=== PATIENT | female | born 1945 | race Caucasian/White ===

== ENCOUNTER 2019-07-28 12:43 | Emergency (ER) | payer MEDICARE, BC ==
[~2019-07-28] VITALS: Ht 172.7 cm; Wt 113.6 kg
[2019-07-28 12:53] VITALS: TEMP 97.6
[2019-07-28 15:34] LABS: BASO % 0.5 % (0.0-2.0); EOS # 0.2 (0.0-0.7); EOS % 2.6 % (0-4.0); GRAN # 3.8 (1.4-6.5); GRAN % 66.4 % (42.2-75.2); HEMATOCRIT 38.8 % (37.0-47.0); HEMOGLOBIN 12.3 g/dl (12.5-16.0); LYMPH # 1.5 (1.2-3.4); LYMPH % 25.4 % (20.0-51.0); MEAN CELL VOLUME 87 fl (80.0-100.0); MEAN CORPUSCULAR HEMOGLOBIN 28 pg (27.0-31.0); MEAN CORPUSCULAR HGB CONC 32 g/dl (33.0-37.0); MEAN PLATELET VOLUME 9.9 fl (7.4-10.4); MONO # 0.3 (0.1-0.6); MONO % 4.9 % (1.7-9.3); PLATELET COUNT 170 K/mm3 (130-400); RED BLOOD COUNT 4.46 M/mm3 (4.10-5.30); REDCELL DISTRIBUTION WIDTH-CV 14.1 % (11.5-14.5)
[2019-07-28 15:38] LABS: INR 3.5 (0.8-3.0); PROTHROMBIN TIME 42.7 SECONDS (9.7-12.8)
[2019-07-28] MEDS ORDERED: CEPHALEXIN500 M1 PO (15:39)
[2019-07-28] MEDS ORDERED: PERCOCET 325 MG1 TA2 PO (15:39)
[2019-07-28 15:45] LABS: CALCIUM 9.2 mg/dL (8.4-10.2); CREATININE, serum 0.86 (0.52-1.25); POTASSIUM 4.2 mmol/L (3.4-5.0)
[2019-07-28 16:07] VITALS: BP 136/74; PULSE 86
[2019-07-30] MEDS ORDERED: DOXYCYCLINE 10100 MG PO ×2 (16:00→16:01)
== END 2019-07-28 16:07 | disposition home or self-care (01) ==
LOC: COL.ER 12:43
PROVIDERS: Emergency Medicine
DX: L97.319 Non-pressure chronic ulcer of right ankle with unspecified severity (principal); L02.415 Cutaneous abscess of right lower limb; Z86.718 Personal history of other venous thrombosis and embolism; Z79.01 Long term (current) use of anticoagulants

== ENCOUNTER → 2020-02-05 | Outpatient (CLI) | payer MEDICARE ==
[~2020-02-05] MED LIST: CEPHALEXIN500 M1 PO; DOXYCYCLINE 10100 MG PO; PERCOCET 325 MG1 TA2 PO
== END ==
LOC: COL.RAD 12:21
DX: M51.26 Other intervertebral disc displacement, lumbar region (principal); M48.07 Spinal stenosis, lumbosacral region

== ENCOUNTER 2020-03-18 09:15 | Outpatient (RCR) | payer MEDICARE | END 2020-05-31 | disposition home or self-care (01) | LOC: WSPT | DX: M48.062 Spinal stenosis, lumbar region with neurogenic claudication (principal) ==

== ENCOUNTER → 2020-06-04 | Outpatient (CLI) | payer MEDICARE | LOC: COL.RAD 12:28 | DX: R26.81 Unsteadiness on feet (principal); W19.XXXA Unspecified fall, initial encounter ==

== ENCOUNTER → 2020-08-10 | Outpatient (CLI) | payer MEDICARE | LOC: ZCOL.LAB 16:20 | DX: I83.009 Varicose veins of unspecified lower extremity with ulcer of unspecified site (principal); T14.8XXA Other injury of unspecified body region, initial encounter ==

== ENCOUNTER → 2020-12-07 | Outpatient (CLI) | payer MEDICARE ==
[~2020-12-07] MED LIST changes: +BUSPAR DIVIDOSE15 MG PO; +CELEXA 20MG20 MG/TAB PO; +COUMADIN 2MG2 MG/TAB PO; +D3-5050000 IU PO; +FERROUS SU325 MG/TAB PO; +MIRAPEX0.5 MG PO; +NEURONTIN400 MG/CAP PO; +NORCO 325 MG-51 TAB PO; +PRIL40 PO; +RESTORIL 1515 MG/CAP PO; +SYNTHROID 0.0.025 MG PO; +URSO250 MG PO
== END ==
LOC: COL.RAD 13:19
DX: E04.2 Nontoxic multinodular goiter (principal)

== ENCOUNTER → 2020-12-16 | Outpatient (CLI) | payer MEDICARE | LOC: MC.RAD 13:13 | DX: Z12.31 Encounter for screening mammogram for malignant neoplasm of breast (principal); Z78.0 Asymptomatic menopausal state ==

== ENCOUNTER → 2020-12-30 | Outpatient (CLI) | payer MEDICARE | LOC: COL.RAD 07:59 | DX: K74.3 Primary biliary cirrhosis (principal) ==

== ENCOUNTER 2020-12-31 06:45 | Day surgery (SDC) | payer MEDICARE ==
[~2020-12-31] VITALS: Ht 167.6 cm; Wt 125.9 kg
[~2020-12-31 06:45] MED LIST changes: -BUSPAR DIVIDOSE15 MG PO; -CELEXA 20MG20 MG/TAB PO; -COUMADIN 2MG2 MG/TAB PO; -D3-5050000 IU PO; -FERROUS SU325 MG/TAB PO; -MIRAPEX0.5 MG PO; -NEURONTIN400 MG/CAP PO; -NORCO 325 MG-51 TAB PO; -PRIL40 PO; -RESTORIL 1515 MG/CAP PO; -SYNTHROID 0.0.025 MG PO; -URSO250 MG PO
[2020-12-31 07:18] VITALS: BP 120/74; PULSE 76; TEMP 97.7
[2020-12-31] MEDS ORDERED: COUMADIN 2MG2 MG/TAB PO (07:39)
[2020-12-31] MEDS ORDERED: BUSPAR DIVIDOSE15 MG PO (07:39)
[2020-12-31] MEDS ORDERED: SYNTHROID 0.0.025 MG PO (07:39)
[2020-12-31] MEDS ORDERED: RESTORIL 1515 MG/CAP PO (07:40)
[2020-12-31] MEDS ORDERED: PRIL40 PO (07:40)
[2020-12-31] MEDS ORDERED: URSO250 MG PO (07:41)
[2020-12-31] MEDS ORDERED: NEURONTIN400 MG/CAP PO (07:41)
[2020-12-31] MEDS ORDERED: FERROUS SU325 MG/TAB PO (07:42)
[2020-12-31] MEDS ORDERED: CELEXA 20MG20 MG/TAB PO (07:42)
[2020-12-31] MEDS ORDERED: MIRAPEX0.5 MG PO (07:43)
[2020-12-31] MEDS ORDERED: D3-5050000 IU PO (07:44)
[2020-12-31] MEDS ORDERED: NORCO 325 MG-51 TAB PO (07:45)
[2020-12-31 09:05] VITALS: BP 111/79; PULSE 77; TEMP 97.9
--- NOTE | 2020-12-31 09:05 | NUR ---
PATIENT TO RECOVERY BAY 1 POST PROCEDURE VIA CART ACCOMPANIED BY RN Tyrone NAIDU RN. PATIENT UP TO CHAIR AMBULATORY WITH 2 PERSON ASSIST. MADE COMFORTABLE IN CHAIR, GIVEN WARM BLANKET. VITAL SIGNS TAKEN, WNL. REPORT FROM Tyrone NAIDU RN. PATIENT GIVEN MUFFIN AND COFFEE. DENIES NAUSEA OR PAIN. PATIENT RESTLESS.
--- NOTE | 2020-12-31 09:12 | NUR ---
AT BEDSIDE TO DISCUSS RESULTS OF PROCEDURE WITH PATIENT AND FRIEND OVER PHONE CALL.
[2020-12-31 09:15] VITALS: BP 115/80; PULSE 77
--- NOTE | 2020-12-31 09:24 | NUR ---
IV SITE TO RIGHT HAD DISCONTINUED. NO REDNESS OR SWELLING. PRESSURE APPLIED AND SECURED WITH COTTON BALL AND COBAN.
--- NOTE | 2020-12-31 09:29 | NUR ---
VERBAL DISCUSSION OF DISMISSAL INSTRUCTIONS WITH PATIENT. HARD COPIES OF INSTRUCTIONS GIVEN TO PATIENT. PATIENT GIVES VERBAL UNDERSTANDING AND DENIES QUESTIONS. PATIENT SIGNS IN ACKNOWLEDGMENT OF RECEIPT.
[2020-12-31 09:30] VITALS: BP 122/75; PULSE 76
--- NOTE | 2020-12-31 09:49 | NUR ---
PATIENT CHANGES OUT OF GOWN, ESCORTED VIA WHEELCHAIR OFF UNIT BY CHAPARRO RN TO WAITING SUPER[employer]OR [employer]. ASSISTED TO VEHICLE.
== END 2020-12-31 09:49 | disposition home or self-care (01) ==
LOC: SDCO 06:45
DX: Z12.11 Encounter for screening for malignant neoplasm of colon (principal); D12.3 Benign neoplasm of transverse colon; K29.70 Gastritis, unspecified, without bleeding; K21.9 Gastro-esophageal reflux disease without esophagitis; K64.1 Second degree hemorrhoids; K21.00 Gastro-esophageal reflux disease with esophagitis, without bleeding; K44.9 Diaphragmatic hernia without obstruction or gangrene; K57.30 Diverticulosis of large intestine without perforation or abscess without bleeding; E03.9 Hypothyroidism, unspecified; I82.90 Acute embolism and thrombosis of unspecified vein; G43.909 Migraine, unspecified, not intractable, without status migrainosus; E66.9 Obesity, unspecified; E55.9 Vitamin D deficiency, unspecified; M35.00 Sjogren syndrome, unspecified; F32.9 Major depressive disorder, single episode, unspecified; F41.9 Anxiety disorder, unspecified; Z86.010 Personal history of colon polyps; Z88.8 Allergy status to other drugs, medicaments and biological substances; Z96.653 Presence of artificial knee joint, bilateral; Z79.01 Long term (current) use of anticoagulants; Z88.5 Allergy status to narcotic agent; Z20.822 Contact with and (suspected) exposure to COVID-19; Z86.718 Personal history of other venous thrombosis and embolism; Z79.891 Long term (current) use of opiate analgesic; Z79.899 Other long term (current) drug therapy; Z68.41 Body mass index [BMI] 40.0-44.9, adult
CPT/HCPCS: J2704; J7030

== ENCOUNTER → 2021-04-14 | Outpatient (CLI) | payer MEDICARE ==
[~2021-04-14] MED LIST changes: +BUSPAR DIVIDOSE15 MG PO; +CELEXA 20MG20 MG/TAB PO; +COUMADIN 2MG2 MG/TAB PO; +D3-5050000 IU PO; +FERROUS SU325 MG/TAB PO; +MIRAPEX0.5 MG PO; +NEURONTIN400 MG/CAP PO; +NORCO 325 MG-51 TAB PO; +PRIL40 PO; +RESTORIL 1515 MG/CAP PO; +SYNTHROID 0.0.025 MG PO; +URSO250 MG PO
== END ==
LOC: ZCOL.LAB 17:58
DX: I83.009 Varicose veins of unspecified lower extremity with ulcer of unspecified site (principal)

== ENCOUNTER 2021-06-25 10:17 | Emergency (ER) | payer MEDICARE ==
[~2021-06-25] VITALS: Ht 172.7 cm; Wt 126.4 kg
[2021-06-25 10:18] VITALS: TEMP 97.1
[2021-06-25] MEDS ORDERED: NORCO 325 MG-51 TAB PO (11:01)
[2021-06-25 12:20] VITALS: BP 138/68; PULSE 80
== END 2021-06-25 12:20 | disposition home or self-care (01) ==
LOC: COL.ER 10:17
DX: S92.902A Unspecified fracture of left foot, initial encounter for closed fracture (principal); I87.2 Venous insufficiency (chronic) (peripheral); K21.9 Gastro-esophageal reflux disease without esophagitis; Z98.890 Other specified postprocedural states; Z79.899 Other long term (current) drug therapy; X50.1XXA Overexertion from prolonged static or awkward postures, initial encounter
CPT/HCPCS: L4386

== ENCOUNTER → 2021-11-30 | Outpatient (CLI) | payer MEDICARE | LOC: COL.VAS 12:42 | DX: I82.401 Acute embolism and thrombosis of unspecified deep veins of right lower extremity (principal) ==

== ENCOUNTER → 2022-02-01 | Outpatient (CLI) | payer MEDICARE | LOC: COL.RAD 10:55 | DX: E04.2 Nontoxic multinodular goiter (principal) ==

== ENCOUNTER → 2022-02-13 | Outpatient (CLI) | payer MEDICARE | LOC: MC.RAD 14:50 | DX: Z12.31 Encounter for screening mammogram for malignant neoplasm of breast (principal) ==

== ENCOUNTER → 2022-07-28 | Outpatient (CLI) | payer MEDICARE | LOC: COL.RAD 10:03 | DX: K74.3 Primary biliary cirrhosis (principal); M35.00 Sjogren syndrome, unspecified; N28.1 Cyst of kidney, acquired ==

== ENCOUNTER 2022-12-27 08:00 | Day surgery (SDC) | payer MEDICARE ==
[~2022-12-27] VITALS: Ht 170.2 cm; Wt 126.2 kg
[~2022-12-27 08:00] MED LIST changes: +CALCIUM 600MG+D1 TAB PO; -D3-5050000 IU PO; +URSO FORTE500 MG PO; -URSO250 MG PO
[2022-12-27 08:56] VITALS: BP 167/87; PULSE 83; TEMP 97.2
[2022-12-27 09:31] LABS: PROTHROMBIN TIME 46.3 SECONDS (9.7-12.8)
--- NOTE | 2022-12-27 10:30 | NUR ---
0935-DR BEARD IN ROOM DISCUSSING LAB VALUES WITH PT. DR BEARD IS CANCELING THIS PROCEDURE AT THIS TIME. DR BEARD WILL COME BACK TO DISCUSS A NEW PLAN WITH THE PT. 0940-IV DC'D AT THIS TIME. PT DENIES ANY ASSISTANCE WITH DRESSING. 1017-DR BEARD IN ROOM DISCUSSING NEW PLAN WITH PT. 1030-PT OFF UNIT PER WHEELCHAIR. PT DISCHARGED TO HOME WITH HER FRIEND PER PERSONAL VEHICLE.
== END 2022-12-27 10:30 | disposition home or self-care (01) ==
LOC: SDCO 08:00
PROVIDERS: Internal Medicine Gastroenterology
DX: K21.9 Gastro-esophageal reflux disease without esophagitis (principal); K74.3 Primary biliary cirrhosis; M35.00 Sjogren syndrome, unspecified; Z79.899 Other long term (current) drug therapy; Z79.01 Long term (current) use of anticoagulants; Z53.8 Procedure and treatment not carried out for other reasons
CPT/HCPCS: J2704

== ENCOUNTER 2022-12-29 11:56 | Day surgery (SDC) | payer MEDICARE ==
[~2022-12-29] VITALS: Ht 172.7 cm; Wt 126.0 kg
[2022-12-29 13:04] VITALS: BP 145/72; PULSE 71; TEMP 97.5
[2022-12-29 13:11] LABS: INR 2.5 (0.8-3.0); PROTHROMBIN TIME 28.5 SECONDS (9.7-12.8)
[2022-12-29] MEDS ORDERED: LIORESAL 1010 MG/TAB PO (13:19)
[2022-12-29] MEDS ORDERED: ZOLOFT 100MG100 MG PO (13:19)
[2022-12-29] MEDS ORDERED: SENOKOT S 50 MG1 TAB PO (13:20)
[2022-12-29] MEDS ORDERED: VITAMIN A10k PO (13:20)
[2022-12-29] MEDS ORDERED: IMITREX50 MG PO (13:21)
[2022-12-29 14:45] VITALS: BP 153/93; PULSE 76; TEMP 97.5
[2022-12-29 15:00] VITALS: BP 150/95; PULSE 77
--- NOTE | 2022-12-29 16:00 | NUR ---
1445-PT TO BAY 6 PER CART FROM PROCEDURE ROOM. PT AMBULATED TO CHAIR. REPORT RECEIEVED. VS OBTAINED. CALL LIGHT WITHIN REACH. PT DENIES ANY NEEDS AT THIS TIME. 1500-PT TOLERATING SODA AND MUFFIN. 1510-DR BEARD IN ROOM VISITING WITH PT, HER FRIEND, AND HER SON WHO WAS ON THE PHONE. 1530-DISCHARGE EDUCATION COMPLETED WITH PT AND HER FRIEND. VERBALIZED UNDERSTANDING OF HOME AND FOLLOW UP CARE. ALL QUESTIONS ANSWERED. DISCHARGE PAPERWORK GIVEN TO PT. 1532-IV DC'D AT THIS TIME. PT DRESSED WITHOUT ASSISTANCE. 1600-PT OFF UNIT PER WHEELCHAIR. PT DISCHARGED TO HOME WITH HER FRIEND PER PERSONAL VEHICLE.
== END 2022-12-29 16:00 | disposition home or self-care (01) ==
LOC: SDCO 11:56
PROVIDERS: Internal Medicine Gastroenterology
DX: K44.9 Diaphragmatic hernia without obstruction or gangrene (principal); R68.81 Early satiety; R11.0 Nausea; R10.13 Epigastric pain; E66.9 Obesity, unspecified; K21.9 Gastro-esophageal reflux disease without esophagitis; M35.00 Sjogren syndrome, unspecified; K74.3 Primary biliary cirrhosis; K74.60 Unspecified cirrhosis of liver; Z79.899 Other long term (current) drug therapy; Z86.16 Personal history of COVID-19; Z78.9 Other specified health status
CPT/HCPCS: J2704; J7120

== ENCOUNTER 2023-02-07 16:22 | Emergency (ER) | payer MEDICARE ==
[~2023-02-07] VITALS: Ht 172.7 cm; Wt 125.9 kg
[~2023-02-07 16:22] MED LIST changes: +CLEOCIN HCL300 MG PO; +ELIQUIS 5MG PO; +IMITREX50 MG PO; +LIORESAL 1010 MG/TAB PO; +NATURAL IRON65 MG; +ROXICODONE 55 MG/TAB PO; +SENOKOT S 50 MG1 TAB PO; +URSO250 MG PO; +VITAMIN A10k PO; +ZOLOFT 100MG100 MG PO
[2023-02-07 16:28] VITALS: TEMP 98.1
[2023-02-07 17:35] LABS: COLLECTION METHOD CLEAN CATCH
[2023-02-07 17:39] LABS: BASO % 0.3 % (0.0-2.0); EOS # 0.1 K/mm3 (0.0-0.7); EOS % 1.4 % (0.0-4.0); GRAN # 3.9 K/mm3 (1.4-6.5); GRAN % 67.1 % (42.2-75.2); LYMPH # 1.3 K/mm3 (1.2-3.4); LYMPH % 23.1 % (20.0-51.0); MEAN CELL VOLUME 82 fl (80.0-100.0); MEAN CORPUSCULAR HGB CONC 30 g/dl (33.0-37.0); MEAN PLATELET VOLUME 9.8 fl (7.4-10.4); MONO # 0.5 K/mm3 (0.1-0.6); MONO % 7.9 % (1.7-9.3); PLATELET COUNT 213 K/mm3 (130-400); RED BLOOD COUNT 3.52 M/mm3 (4.10-5.30); REDCELL DISTRIBUTION WIDTH-CV 18.8 % (11.5-14.5)
[2023-02-07 17:42] LABS: HEMOGLOBIN 8.6 g/dl (12.5-16.0); MEAN CORPUSCULAR HEMOGLOBIN 24 pg (27-31)
[2023-02-07 17:51] LABS: URINE APPEARANCE Clear (CLEAR/HAZY); URINE BLOOD Negative (NEGATIVE); URINE COLOR Yellow (YELLOW); URINE GLUCOSE Negative (NEGATIVE); URINE KETONE Negative (NEGATIVE); URINE NITRATE Negative (NEGATIVE); URINE PROTEIN(semi-quant) Negative (NEGATIVE)
[2023-02-07 17:52] LABS: SQUAMOUS EPITHELIAL 0-2 /hpf (0-10); URINE BACTERIA Rare /hpf (NONE SEEN); URINE RBC 0-2 /hpf (0-2)
[2023-02-07 17:56] LABS: ALBUMIN 2.9 gm/dL (3.4-4.8); BILIRUBIN,TOTAL 0.7 mg/dL (0.2-1.2); C-REACTIVE PROTEIN 2.38 mg/dL (0.00-0.50); CALCIUM 9.1 mg/dL (8.4-10.2); CREATININE, serum 0.81 mg/dL (0.57-1.11)
[2023-02-07 20:12] VITALS: BP 142/69; PULSE 81
== END 2023-02-07 20:12 | disposition home or self-care (01) ==
LOC: COL.ER 16:22
PROVIDERS: Nurse Practitioner
DX: R10.10 Upper abdominal pain, unspecified (principal); Z87.19 Personal history of other diseases of the digestive system; Z28.310 Unvaccinated for COVID-19
CPT/HCPCS: Q9967

== ENCOUNTER → 2023-07-31 | Outpatient (CLI) | payer MEDICARE ==
[~2023-07-31] MED LIST changes: +B-121000 MCG PO; +ELIQUIS 2.5 PO; +IMITREX 25MG TA25 MG PO; +LYRICA 25MG CAP25 MG PO; +MIRALAX PA17 GM/Dose PO; +RESTORIL22.5 MG PO
== END ==
LOC: COL.RAD 10:57
DX: N28.1 Cyst of kidney, acquired (principal)

== ENCOUNTER → 2023-10-08 | Outpatient (CLI) | payer MEDICARE | LOC: COL.RAD 07:37 | DX: K74.60 Unspecified cirrhosis of liver (principal) ==

== ENCOUNTER → 2024-01-08 | Outpatient (CLI) | payer MEDICARE | LOC: COL.RAD 09:30 | DX: R41.3 Other amnesia (principal) ==

== ENCOUNTER 2024-01-30 06:15 | Emergency (ER) | payer MEDICARE ==
[~2024-01-30] VITALS: Ht 170.2 cm; Wt 118.2 kg
[2024-01-30 06:25] VITALS: TEMP 98
[2024-01-30 07:14] LABS: BASO # 0.1 K/mm3 (0.0-0.2); BASO % 1.2 % (0.0-2.0); EOS # 0.2 K/mm3 (0.0-0.7); EOS % 4.2 % (0.0-4.0); GRAN # 2.2 K/mm3 (1.4-6.5); HEMATOCRIT 33.6 % (37.0-47.0); HEMOGLOBIN 10.5 g/dl (12.5-16.0); LYMPH # 1.2 K/mm3 (1.2-3.4); MEAN CELL VOLUME 100 fl (80.0-100.0); MEAN CORPUSCULAR HEMOGLOBIN 31 pg (27-31); MEAN CORPUSCULAR HGB CONC 31 g/dl (33.0-37.0); MEAN PLATELET VOLUME 10.6 fl (7.4-10.4); MONO # 0.4 K/mm3 (0.1-0.6); MONO % 9.6 % (1.7-9.3); PLATELET COUNT 108 K/mm3 (130-400); RED BLOOD COUNT 3.36 M/mm3 (4.10-5.30); REDCELL DISTRIBUTION WIDTH-CV 15.4 % (11.5-14.5)
[2024-01-30 07:23] LABS: INR 1.4 (0.8-3.0); PROTHROMBIN TIME 15.1 SECONDS (9.7-12.8)
[2024-01-30 07:31] LABS: ALBUMIN 2.6 g/dL (3.4-4.8); BILIRUBIN,TOTAL 0.8 mg/dL (0.2-1.2); C-REACTIVE PROTEIN 1.25 mg/dL (0.00-0.50); CREATININE, serum 0.9 mg/dL (0.57-1.11); MAGNESIUM 1.9 mg/dL (1.6-2.6); POTASSIUM 4.2 mEq/L (3.5-4.5); TOTAL PROTEIN 7.3 g/dl (6.2-8.1)
[2024-01-30 07:51] LABS: THYROID STIMULATING HORMONE 1.04 uIU/mL (0.350-4.940)
[2024-01-30] MEDS ORDERED: Ketorolac 30 MG/ML VIAL IV ONE (08:30)
[2024-01-30] MEDS ORDERED: Iohexol 300 - 100 ML VIAL IV ONE (08:50)
[2024-01-30] MEDS ORDERED: NS 100 ML IV SCH (08:51)
[2024-01-30 11:27] VITALS: BP 152/73; PULSE 71
== END 2024-01-30 11:27 | disposition home or self-care (01) ==
LOC: COL.ER 06:15
PROVIDERS: Emergency Medicine
DX: M79.661 Pain in right lower leg (principal); R07.89 Other chest pain; R10.31 Right lower quadrant pain; Z79.01 Long term (current) use of anticoagulants; Z86.718 Personal history of other venous thrombosis and embolism
CPT/HCPCS: J1885; Q9967

== ENCOUNTER 2024-06-03 11:56 | Inpatient (IN) | payer MEDICARE ==
[~2024-06-03] VITALS: Ht 172.7 cm; Wt 116.6 kg
[2024-06-03] MEDS ORDERED: NS 1,000 ML IV SCH (15:30)
[2024-06-03 16:10] LABS: COLLECTION METHOD CLEAN CATCH
[2024-06-03 16:16] LABS: BASO % 0.3 % (0.0-2.0); EOS # 0.2 K/mm3 (0.0-0.7); EOS % 1.7 % (0.0-4.0); GRAN # 7.6 K/mm3 (1.4-6.5); GRAN % 77.3 % (42.2-75.2); HEMATOCRIT 30.3 % (37.0-47.0); HEMOGLOBIN 9.4 g/dl (12.5-16.0); LYMPH # 1.3 K/mm3 (1.2-3.4); LYMPH % 13.3 % (20.0-51.0); MEAN CELL VOLUME 95 fl (80.0-100.0); MEAN CORPUSCULAR HEMOGLOBIN 29 pg (27-31); MEAN CORPUSCULAR HGB CONC 31 g/dl (33.0-37.0); MEAN PLATELET VOLUME 10.9 fl (7.4-10.4); MONO # 0.7 K/mm3 (0.1-0.6); MONO % 7.2 % (1.7-9.3); PLATELET COUNT 161 K/mm3 (130-400); REDCELL DISTRIBUTION WIDTH-CV 14.5 % (11.5-14.5)
[2024-06-03 16:23] LABS: PH 7.5 (5.0-8.5); URINE APPEARANCE CLOUDY (CLEAR/HAZY); URINE BLOOD 1+ (NEGATIVE); URINE COLOR Dark Yellow (YELLOW); URINE GLUCOSE NEGATIVE (NEGATIVE); URINE KETONE NEGATIVE (NEGATIVE); URINE NITRATE POSITIVE (NEGATIVE); URINE PROTEIN(semi-quant) 1+ (NEGATIVE)
[2024-06-03 16:35] LABS: ERYTHROCYTE SEDIMENTATION RATE 50 mm/hr (0-30)
[2024-06-03 17:05] LABS: URINE BACTERIA MODERATE /hpf (NONE SEEN); URINE RBC 0-2 /hpf (0-2); URINE WBC 20-50 /hpf (0-2)
[2024-06-03] MEDS ORDERED: cefTRIAXone 1 G in Water For Injection,Sterile 10 ML IV ONE (17:15)
[2024-06-03 17:22] LABS: ALBUMIN 2.8 g/dL (3.4-4.8); BILIRUBIN,TOTAL 1.2 mg/dL (0.2-1.2); C-REACTIVE PROTEIN 5.86 mg/dL (0.00-0.50); CALCIUM 8.7 mg/dL (8.4-10.2); CREATININE, serum 0.93 mg/dL (0.57-1.11); POTASSIUM 4.2 mEq/L (3.5-4.5); TOTAL PROTEIN 7.4 g/dl (6.2-8.1)
[2024-06-03] MEDS ORDERED: Acetaminophen 325 MG TAB PO PRN (18:45)
[2024-06-03] MEDS ORDERED: B-121000 MCG PO (19:13)
[2024-06-03] MEDS ORDERED: KLOR-CON 88 ME1 PO (19:14)
[2024-06-03] MEDS ORDERED: PLAQUENIL 200M200 MG PO (19:15)
[2024-06-03] MEDS ORDERED: XANAX .25M0.25 MG/TA PO (19:15)
[2024-06-03] MEDS ORDERED: RESTASIS 60VL OP (19:15)
[2024-06-03] MEDS ORDERED: LR 1,000 ML IV SCH (19:30)
[2024-06-03] MEDS ORDERED: Doxycycline Hyclate 100 MG in NS 150 ML IV SCH (20:00)
[2024-06-03 20:30] VITALS: BP 152/61; PULSE 100; TEMP 100.3
--- NOTE | 2024-06-03 20:55 | NUR ---
Report recieved from ELIN Bradshaw in ED. All questions answered at this time.
[2024-06-03] MEDS ORDERED: Apixaban 2.5 MG TABLET PO SCH (21:00)
[2024-06-03] MEDS ORDERED: busPIRone 7.5 MG TABLET PO SCH (21:00)
[2024-06-03] MEDS ORDERED: Cyanocobalamin (Vit B-12) 1,000 MCG TAB PO SCH (21:00)
[2024-06-03] MEDS ORDERED: Pregabalin 50 MG CAP PO SCH (21:00)
--- NOTE | 2024-06-03 21:10 | NUR ---
Patient arrived to room 315 at this time with daughter. Rates her pain at 2/10 and requests her [place] and Xanax. Assissted patient to bathroom and back to bed. Stool occult and C-diff sample obtained and sent to lab. Patient requested to sit in chair because she can't sleep in a bed. Fall precautions put in place. Assessment and med rec complete. IV in left forearm infusing without complicaitons. Oriented patient to room, call light, and bathroom. needs met. Call light and personal items in reach.
[2024-06-03 21:30] VITALS: BP 152/61; PULSE 100; TEMP 100.3
[2024-06-03 21:45] VITALS: BP_SYST 152
--- NOTE | 2024-06-03 23:33 | NUR ---
Patient left unit to go to CT at this time with radiology.
--- NOTE | 2024-06-03 23:54 | NUR ---
Patient returned from CT at this time via wheelchair.
[2024-06-04] VITALS (13 sets, daily range): BP systolic 98–162; BP diastolic 44–71; PULSE 64–101; TEMP 97.7–100.3
[2024-06-04] MEDS ORDERED: Iohexol 300 - 100 ML VIAL IV ONE (00:13)
[2024-06-04] MEDS ORDERED: VITAMIN C500 MG PO (00:27)
[2024-06-04 00:56] LABS: CLOSTRIDIUM DIFF A/B NEG
--- NOTE | 2024-06-04 01:10 | NUR ---
Rojas Ordoñez called and asked if patient would be able to resume home Xanax per patient resquest. Recieved orders to resume home meds. Notified that patient had dropped to 88% on room air and was short of breath. Patient put on 4L stating 98% and stated the oxygen helps.
[2024-06-04] MEDS ORDERED: ALPRAZolam 0.25 MG TAB PO PRN (01:15)
--- NOTE | 2024-06-04 03:00 | NUR ---
Bladder scan complete. 260mL urine in bladder. Patient able to void 125mL.
--- NOTE | 2024-06-04 04:50 | NUR ---
Hospitalist Smita called and notified of manual BP of 98/46 and patient stated she has dropped like this before. Patient recieving LR @100mL/hr currently. Stated to keep an eye on it for now.
--- NOTE | 2024-06-04 05:20 | NUR ---
Patient resting in chair. Rates pain at 3/10, prn pain meds given. Denies any other needs. Patient on 3L O2 stating mid 90s. Call light and personal items in reach.
--- NOTE | 2024-06-04 06:52 | NUR ---
Gerardo Vargas called and notified of consult.
[2024-06-04 07:16] LABS: BASO % 0.4 % (0.0-2.0); EOS # 0.1 K/mm3 (0.0-0.7); EOS % 0.6 % (0.0-4.0); GRAN # 6.6 K/mm3 (1.4-6.5); GRAN % 79.5 % (42.2-75.2); MEAN CELL VOLUME 94 fl (80.0-100.0); MEAN CORPUSCULAR HGB CONC 31 g/dl (33.0-37.0); MEAN PLATELET VOLUME 11.2 fl (7.4-10.4); MONO # 0.6 K/mm3 (0.1-0.6); MONO % 7.3 % (1.7-9.3); PLATELET COUNT 147 K/mm3 (130-400); RED BLOOD COUNT 2.83 M/mm3 (4.10-5.30); REDCELL DISTRIBUTION WIDTH-CV 14.4 % (11.5-14.5)
[2024-06-04 07:21] LABS: HEMATOCRIT 26.5 % (37.0-47.0); HEMOGLOBIN 8.3 g/dl (12.5-16.0); MEAN CORPUSCULAR HEMOGLOBIN 29 pg (27-31)
[2024-06-04 07:36] LABS: CREATININE, serum 0.86 mg/dL (0.57-1.11); POTASSIUM 3.9 mEq/L (3.5-4.5)
[2024-06-04] MEDS ORDERED: Ursodiol 300 MG CAP PO SCH (08:00)
[2024-06-04] MEDS ORDERED: Baclofen 10 MG TAB PO SCH (09:00)
[2024-06-04] MEDS ORDERED: Ferrous Sulfate 325 MG TAB PO SCH (09:00)
[2024-06-04] MEDS ORDERED: Sertraline 100 MG TAB PO SCH (09:00)
[2024-06-04] MEDS ORDERED: Calcium Carb/Vit D3 500 mg-200 Units TAB PO SCH (09:00)
[2024-06-04] MEDS ORDERED: Pantoprazole 40 MG in NS 10 ML IV SCH (09:00)
--- NOTE | 2024-06-04 10:28 | NUR ---
IV SITE IN THE LEFT FOREARM WAS RED AND RAISED. IV WAS DISCONTINUED AND REMOVED. A NEW IV SITE WAS STARTED AT 0930 IN THE RIGHT FOREARM. PT TOLERATED WELL.
--- NOTE | 2024-06-04 10:43 | NUR ---
SW met with patient to complete initial assessment for discharge planning. Patient shared that she lives in [place] alone in her own home. Patient lists her son Farhat ([phone]) as her DPOA and his Domenic ([phone]) as her contact. Patient states that she sees Remedios Thomas APRN as her PCP and uses [facility]. Patient states she has a cane and rollator walker, shower chair andgrab bars at home. She states she was told not to use the cane any longer. Patient states she does not drive any longer and her daughter in law is her caregiver and provides transportation to appointments. [facility] for [facility] She also has an RN for wound care that sees her 3 times weekly. Discussed possible discharge needs to include HH or SNF. Patient refuses SNF but is agreeable to have HH services. Discharge plan: Home with HH
--- NOTE | 2024-06-04 11:23 | NUR ---
Patient provided with Medicare.gov list of HH providers for possible HH referrals.
[2024-06-04] MEDS ORDERED: Furosemide 40 MG/4 ML VIAL IV ONE (11:30)
--- NOTE | 2024-06-04 11:42 | NUR ---
NOTIFIED OF POSITIVE BLOOD CULTURE, GROWING PROTEUS SPECIES.
--- NOTE | 2024-06-04 22:00 | NUR ---
UPON SHIFT ASSESSMENT, TANGELA WAS IN BEDSIDE RECLINER WITH SEVERAL BLANKETS. STATES SHE ALWAYS GETS COLD AT NIGHT. PATIENT NOTED TO BE SHIVERING-TEMP RECHECK-100.2. PATIENT C/O LT FOOT PAIN R/T WOUND. PRN NORCO ADMINISTERED FOR PAIN AND LOW GRADE FEVER. BLLE PEDAL PULSES PALPABLE AND STRONG AND SKIN ERYTHEMIC AND DISCOLORED. LUNG SOUNDS WERE CLEAR AND O2 SAT IS WNL, HOWEVER, PATIENT STATES SHE WOULD LIKE O2 FOR COMFORT, SAYS THIS IS BASELINE FOR HER. NASAL CANNULA AND O2 AT 0.5L ADMINISTERED. MED PASS COMPLETE AND CURRENT VITALS WNL. STATES NO NEEDS AT THIS TIME. CALL LIGHT WITHIN REACH, BED ALARM ON.
[2024-06-05] VITALS (13 sets, daily range): BP systolic 113–159; BP diastolic 51–73; PULSE 71–89; TEMP 97.9–100.7
[2024-06-05 06:35] LABS: BASO % 0.2 % (0.0-2.0); EOS # 0.1 K/mm3 (0.0-0.7); EOS % 0.8 % (0.0-4.0); GRAN % 82.5 % (42.2-75.2); LYMPH # 0.8 K/mm3 (1.2-3.4); LYMPH % 9.6 % (20.0-51.0); MEAN CELL VOLUME 92 fl (80.0-100.0); MEAN CORPUSCULAR HGB CONC 32 g/dl (33.0-37.0); MEAN PLATELET VOLUME 10.9 fl (7.4-10.4); MONO # 0.5 K/mm3 (0.1-0.6); MONO % 6.4 % (1.7-9.3); PLATELET COUNT 165 K/mm3 (130-400); RED BLOOD COUNT 2.86 M/mm3 (4.10-5.30); REDCELL DISTRIBUTION WIDTH-CV 14.2 % (11.5-14.5)
[2024-06-05 06:39] LABS: HEMATOCRIT 26.3 % (37.0-47.0); HEMOGLOBIN 8.4 g/dl (12.5-16.0); MEAN CORPUSCULAR HEMOGLOBIN 29 pg (27-31)
[2024-06-05 06:51] LABS: CALCIUM 7.8 mg/dL (8.4-10.2); CREATININE, serum 0.81 mg/dL (0.57-1.11); POTASSIUM 3.9 mEq/L (3.5-4.5)
--- NOTE | 2024-06-05 09:02 | NUR ---
Patient sitting up in chair, alert and oriented x 4, VSS. Dnies any pain or discomfort. IV is burning with antibiotics. To be discontinued and resstart a new one. Assessment completed. Assisted to the bathroom with walker. No further needs at this time. Call light within reach.
[2024-06-05] MEDS ORDERED: LYVISPAH5 MG PO (13:08)
[2024-06-05] MEDS ORDERED: IRON TABLETS325 MG PO (13:11)
--- NOTE | 2024-06-05 15:09 | NUR ---
Patient resting in bed, watching TV. States her pain is less in her left foot. Getting her lunch. Getting IV zosyn.
--- NOTE | 2024-06-05 16:03 | NUR ---
Chemist Organic met with patient to follow up on discharge plan. Patient [facility] and no other facilities. SW also discussed [facility] as an option, however patient was firm she [facility] even though SW advised they have been full. ELIA faxed referral to Adore at [facility] who advised they are full until next week. ELIA followed up with patient who stated if [facility] cannot accept she will go home with [facility]. ELIA faxed referral to Holland at [facility] for review. ELIA contacted patient's daughter in law, Domenic to review discharge plan. Domenic plans to talk with patient about [facility] and [facility] as options. Domenic plans to tour both facilities and report back to patient. ELIA will follow up with Domenic tomorrow. Discharge Plan: SNF vs
--- NOTE | 2024-06-05 21:00 | NUR ---
Patient resting in chair. Denies any pain at this time. Needs met. Assessment complete. IV in right forearm flushes easily without complications. Call light and personal items in reach. Bed in low position and bed alarm on.
[2024-06-05] MEDS ORDERED: Nystatin Oral Susp 100,000 UNITS/ML 5 ML UD PO SCH (21:30)
[2024-06-06] VITALS (12 sets, daily range): BP systolic 124–159; BP diastolic 47–68; PULSE 63–75; TEMP 97.2–99.1
[2024-06-06 06:55] LABS: BASO % 0.3 % (0.0-2.0); EOS # 0.1 K/mm3 (0.0-0.7); EOS % 1.4 % (0.0-4.0); GRAN # 4.6 K/mm3 (1.4-6.5); GRAN % 72.1 % (42.2-75.2); LYMPH # 1.1 K/mm3 (1.2-3.4); LYMPH % 17.2 % (20.0-51.0); MEAN CELL VOLUME 92 fl (80.0-100.0); MEAN CORPUSCULAR HGB CONC 32 g/dl (33.0-37.0); MEAN PLATELET VOLUME 10.9 fl (7.4-10.4); MONO # 0.5 K/mm3 (0.1-0.6); MONO % 8.5 % (1.7-9.3); PLATELET COUNT 144 K/mm3 (130-400); RED BLOOD COUNT 2.89 M/mm3 (4.10-5.30); REDCELL DISTRIBUTION WIDTH-CV 14.4 % (11.5-14.5)
[2024-06-06 06:56] LABS: HEMATOCRIT 26.6 % (37.0-47.0); HEMOGLOBIN 8.5 g/dl (12.5-16.0); MEAN CORPUSCULAR HEMOGLOBIN 29 pg (27-31)
--- NOTE | 2024-06-06 07:00 | NUR ---
sitting up in chair, bedside shift report received from ELIN Obrien
--- NOTE | 2024-06-06 07:00 | NUR ---
RECIEVED REPORT FROM BUFFER INFLATED PAD NURSE CHARLES. PT WAS PRESENT DURING REPORT AND AWAKE AND ALERT SITTING IN HER CHAIR. PT WAS ALONE IN HER ROOM, NO FAMILY PRESENT AT THE TIME OF REPORT.
[2024-06-06 07:16] LABS: CALCIUM 7.9 mg/dL (8.4-10.2); CREATININE, serum 0.77 mg/dL (0.57-1.11)
--- NOTE | 2024-06-06 08:31 | NUR ---
PT AMUBULATED WITH WALKER FROM CHAIR TO BATHROOM BACK TO CHAIR WITH A STAND BY ASSIST. ONCE PT WAS BACK IN CHAIR, PT REQUESTED TO REMOVED YELLOW NONSLIP SOCKS, PRIMARY NURSE WAS NOTIFIED. PT WAS PROVIDED EDUCATION TO NOT AMBULATE ALONE, CALL FOR ASSISTANCE AND THAT SHE WILL NEED TO WEAR THE NON SLIP SOCKS DURING AMBULATION.
--- NOTE | 2024-06-06 08:47 | NUR ---
up in chair, Perla, student nurse in and assisting with pateint care,
--- NOTE | 2024-06-06 09:20 | NUR ---
c/o pain to mouth and some to left ankle, medicated with hydrocodone 5mg 1 tab
--- NOTE | 2024-06-06 10:00 | NUR ---
now having some anxiety and requesting xanex, given xanax 0.5mg po, physical therapy in to work with patient, assisted up to bathroom and area between buttocks is red but blanchable an mepilex dressing placed, then ambulating in dorsey with therapy
--- NOTE | 2024-06-06 10:15 | NUR ---
full assessment completed by this nurse,
--- NOTE | 2024-06-06 11:41 | NUR ---
ambulating in dorsey with physical therapy
--- NOTE | 2024-06-06 13:59 | NUR ---
WHEN I LEFT THE FLOOR. THE PT WAS SITTING IN CHAIR, CALL LIGHT AND PHONE WITHIN REACH. PT HAD JUST RETURNED TO CHAIR FROM TAKING A SHOWER. PRIMARY NURSE NOTIFIED.
--- NOTE | 2024-06-06 14:12 | NUR ---
bedside shift report given to ELIN Gastelum
--- NOTE | 2024-06-06 14:30 | NUR ---
TRUDY AWAKE AND ALERT SITITNG UP IN HER RECLINER. CALL LIGHT WTIHIN REACH. FALL PRECAUITIONS IN PLACE. PATEINT DENIES ANY NEEDS OR COMPLAITNS AT THIS TIME.
--- NOTE | 2024-06-06 16:12 | NUR ---
Pantograph Operator spoke with patient's daughter in law, Socrates who toured both [facility] and [facility]. Socrates plans to discuss this with patient. ELIA followed up with patient who stated she is willing to consider [facility] or [facility] as an option but did not want to make a final decision today. Patient agreeable to have referrals sent. Patient will continue to consider the options. Patient also wants to continue having updates sent to [facility] in case they have an unexpected opening. ELIA sent referrals to both [facility] and [facility]. ELIA also sent updates to [facility]. ELIA faxed clinical updates to [facility] to request authorization. Discharge Plan: SNF, considering options
[2024-06-06] MEDS ORDERED: Temazepam 15 MG CAP PO SCH (21:55)
[2024-06-07] VITALS (11 sets, daily range): BP systolic 115–166; BP diastolic 62–80; PULSE 68–73; TEMP 97.7–98.7
--- NOTE | 2024-06-07 10:55 | NUR ---
PER THERAPY PATIENT WAS COMPLAING OF CHEST PRESSURE. WHEN THIS RN ENTERED THE ROOM, THE PATIENT WAS SITTING UP IN HER RECLINER. DIXIE APPEARS TO BE IN NO ACUTE DISTRESS. PER THE PATIENT SHE FEELS PRESSURE IN THE CENTER OF HER CHEST, THAT IS NOW "BLANKER PRESS OPERATOR"THAN WHEN IT FIRST BEGAN. PATIENT STATES SHE IS SLIGHTLY SOB. HR AND O2 SATURATION ON ROOM AIR WNL. PATIENT PLACED ON 1LNC WHICH SHE VOICED HELP EASE THE SOB. CALL LGT WITHIN REACH.THIS RN WILL NOTIFY THE MD
--- NOTE | 2024-06-07 11:00 | NUR ---
MD NOTIFIED OF PATIENT COMPLAINT (SEE PREVIOUS NOTE FOR DETAILS). PER MD VORB RN TO PLACE ORDER FOR EKG NOW. RESPIRATORY CALLED AND NOTIFIED OF THE STAT EKG ORDERS.
[2024-06-07] MEDS ORDERED: cefTRIAXone 1 G in Water For Injection,Sterile 10 ML IV SCH (12:00)
--- NOTE | 2024-06-07 12:06 | NUR ---
ELIA met with patient to discuss discharge plan of SNF. Patient states "I'm not happy but am willing to go for a short time and get back home." Discussed SNF choices and patient states she prefers [facility] and [facility]. ELIA notified by attending that patient is stable for discharge today. ELIA called Mariblel at [facility] who stated they have no bed available at this time and [facility] does not do weekend admissions. Dr. Beauchamp notified of this delay in discharge due to bed availability. Plan for discharge on Sunday. Discharge plan: SNF
--- NOTE | 2024-06-07 16:04 | NUR ---
PATIENT WAS SET UP ASSIST FOR FULL SHOWER. PATINET NOW SITTING UP IN BED, CALL LIGHT WITHIN REACH. FALL PRECAUTINOS IN PLACE. FAMILY AT BEDSIDE.
[2024-06-08] VITALS (11 sets, daily range): BP systolic 119–148; BP diastolic 56–76; PULSE 67–73; TEMP 97.1–98.4
--- NOTE | 2024-06-08 12:34 | NUR ---
SW sent clinical updates to [facility] and [facility]. Discharge planned for tomorrow Discharge plan: SNF
--- NOTE | 2024-06-08 17:53 | NUR ---
PATIENT AWAKE AND ALERT. PATIENT HAD FULL SHOWER AND IS NOW SITTING UP IN THE RECLINER. PATIENT DENIES ANY NEEDS OR COMPLAINTS AT THIS TIME. DRESSING TO L FOOT CDI. CALL LIGHT WITHIN REACH.
[2024-06-09] VITALS (8 sets, daily range): BP systolic 112–143; BP diastolic 65–72; PULSE 69–75; TEMP 97–98.6
[2024-06-09] MEDS ORDERED: CIPROFLOXACIN 400 MG/200 ML IV ONE (09:30)
--- NOTE | 2024-06-09 10:07 | NUR ---
SW met with patient to review Medicare IM form. Patient voiced understanding of form and is agreeable to discharge. Patient signed form, original on chart, copy to patient.
[2024-06-09] MEDS ORDERED: CIPRO 500MG TA500 MG PO (11:51)
[2024-06-09] MEDS ORDERED: CALCIUM 600 PLU1 TAB PO (11:51)
[2024-06-09] MEDS ORDERED: NYSTATIN OR100 MU/ML PO (11:56)
[2024-06-09] MEDS ORDERED: NORCO 325 MG-51 TAB PO (11:57)
[2024-06-09] MEDS ORDERED: MULTIPLE VITAMI1 CAP PO (12:00)
--- NOTE | 2024-06-09 15:19 | NUR ---
DISCHARGE INSTRUCTIONS PROVIDED. PATIENT EDUCATION GIVEN. IV DC'D. FOLLOW UP APPOINTMENT DISCUSSED. MEDICATIONS REVIEWED. PATIENT DENIES ANY QUESTIONS OR CONCERNS. PATIENT ESCORTED OUT VIA WHEELCHAIR.
--- NOTE | 2024-06-09 15:42 | NUR ---
cathead worker attended interdisciplinary clinical rounding with Dr. Mancilla. Patient is medically ready for discharge. ELIA contacted [facility] whom expressed they would be unable to accept due to bed availabily. ELIA was notified [facility] could accept, [facility] is reviewing. ELIA met with patient to discuss the plan. Patient stated ideally she would like to return home with home health because she does not want to go to a nursing facility. Patient would be okay with either [facility] or [facility] as it would be a short stay for rehab and she understands [facility] does not have availability. SW was notified patient's insurance is requiring a peer to peer, P# option 5. Deadline is 06/09/24 at 3 pm. ELIA provided this information to Dr. mancilla. SW was notified that patient's insurance denied her SNF stay as she was too functional. ELIA notified patient and discussed home health. Patient stated she would like [facility]. ELIA contacted patient's daughter in law, Domenic, while with patient and explained what happened. Domenic understood and would be up to visit with patient and transport her home around 1-2 pm. ELIA Ruth secure emailed referral to [facility]. ELIA was notified [facility] has questions regarding patient's wound care needs. ELIA spoke with wound care and she would need wound care 3 days a week, so every other day. ELIA notified [facility]. ELIA was notified [facility] is able to accept. ELIA secure emailed discharge orders to [facility]. Discharge plan: Home with [facility]
== END 2024-06-09 15:21 | disposition home or self-care (01) | DRG 690 ==
LOC: COL.ER 11:56 → MEDICAL 18:45
PROVIDERS: Nurse Practitioner Family; Physician Assistant; ADMIT Internal Medicine
DX: N39.0 Urinary tract infection, site not specified (principal); R19.7 Diarrhea, unspecified; R60.0 Localized edema; Z86.718 Personal history of other venous thrombosis and embolism; E03.9 Hypothyroidism, unspecified; M35.00 Sjogren syndrome, unspecified; K74.3 Primary biliary cirrhosis; K21.9 Gastro-esophageal reflux disease without esophagitis; G25.81 Restless legs syndrome; F32.A Depression, unspecified; F41.9 Anxiety disorder, unspecified; E88.09 Other disorders of plasma-protein metabolism, not elsewhere classified; Z66 Do not resuscitate
CPT/HCPCS: A6197; G0378; J0696; J0744; J1940; J2470; J2543; J7030; J7120; Q9967

== ENCOUNTER → 2024-07-01 | Outpatient (CLI) | payer MEDICARE ==
[~2024-07-01] MED LIST changes: +CALCIUM 600 PLU1 TAB PO; +CIPRO 500MG TA500 MG PO; +IRON TABLETS325 MG PO; +KLOR-CON 88 ME1 PO; +LYVISPAH5 MG PO; +MULTIPLE VITAMI1 CAP PO; +NYSTATIN OR100 MU/ML PO; +PLAQUENIL 200M200 MG PO; +RESTASIS 60VL OP; +VITAMIN C500 MG PO; +XANAX .25M0.25 MG/TA PO
== END ==
LOC: MC.RAD 09:44
DX: Z12.31 Encounter for screening mammogram for malignant neoplasm of breast (principal)